=== PATIENT | female | born 1990 | race Caucasian/White ===

== ENCOUNTER 2019-07-19 08:15 | Emergency (ER) | payer SELFPAY ==
[2019-07-19 08:35] VITALS: BP 124/93; PULSE 104; RESP 16; TEMP 38.4; O2SAT 99
--- NOTE | 2019-07-19 08:56 | ED.URI ---
HPI - URI/Sore Throat General Chief Complaint: Upper Respiratory Infection Stated Complaint: Cough/Body aches/Stuffy Nose Time Seen by Provider: 07/19/19 08:55 Source: patient and RN notes reviewed Mode of arrival: ambulatory Limitations: no limitations History of Present Illness HPI Narrative: 29-year-old female who presents to [facility] care with 3-day history of fevers, chills, body aches, headache, nasal congestion with green bloody drainage.Patient had 103 Fahrenheit fever this morning,took Tylenol this morning and presents at triage with 101F.Patient states some tightness to chest with cough with coarse lung sounds noted on auscultation SaO2 99% on room air. Patient states she did not take a flu shot this year. Patient does have a history of tobacco abuse 1/2 pack daily for several years states did quit smoking for 2-year interval while and breast-feeding but initially started smoking at age 16,states has not smoked for 3 days MD elicited complaint: fever, cough, rhinorrhea and nasal congestion Pertinent past history: other (tobacco use) Onset (ago): day(s) (3) Consistency: progressively worsening Description of mucous: green Able to tolerate fluids by mouth: Yes Exacerbating factors: exertion and deep breaths Relieving factors: nothing Associated symptoms: fever, chills, myalgias, rhinorrhea, nasal congestion, sore throat and cough Treatments prior to arrival: acetaminophen Related Data Home Medications Medication Instructions Recorded Confirmed alprazolam [Xanax] 1 mg PO Q4-6H 07/19/19 07/19/19 levonorgestrel [Mirena] 1 device INTRAUTERINE ONCE 07/19/19 07/19/19 Allergies Allergy/AdvReac Type Severity Reaction Status Date / Time hydroxyzine Allergy Unknown Unknown Verified 07/19/19 08:49 lorazepam Allergy Unknown Unknown Verified 07/19/19 08:49 Review of Systems Review of Systems: Narrative: CONSTITUTIONAL: Positive fever, chills, or sweats. EYES: Denies visual changes, redness, or discharge. ENT: Positive rhinorrhea, congestion,No sore throat, or otalgia. CARDIOVASCULAR: Denies chest pain, palpitations, or edema. RESPIRATORY:positive cough with tightness to chest with cough,no acute dyspnea. GASTROINTESTINAL: Denies abdominal pain, nausea, vomiting, or diarrhea. GENITOURINARY: Denies dysuria or hematuria. SKIN: Denies rash or itching. MUSCULOSKELETAL: Denies back pain, joint pain,bodyaches NEUROLOGIC: Positive headache,no numbness, or weakness. PSYCHIATRIC:Positive anxiety no depression. All systems reviewed & are unremarkable except as noted in HPI and below PMFSH Past Medical History Medical History (Updated 07/19/19 @ 09:20 by Aide Lira NP) Anxiety Surgical History Surgical History (Updated 07/19/19 @ 08:58 by Aide Lira NP) Hx of appendectomy Family History Family History (Updated 12/26/15 @ 23:21 by DOCTOR UNKNOWN) Grandparent Malignant neoplasm of prostate Father Hypertension Sibling Patient's brother is in good health, Onset Age: 23 Social History Social History (Updated 07/19/19 @ 09:20 by Aide Lira NP) Smoking status: Current every day smoker Tobacco type: cigarettes Smoking end date: 05/30/10 Alcohol intake: current Living arrangements: with family Gender identity (if verbalized by the patient): Female Exam Narrative: Exam Narrative: GENERAL:illl-appearing, well-nourished, and in no acute distress. HEAD: Normocephalic, atraumatic. EYES: PERRLA and EOMI. ENT: Nares RedWith green rhinorrheaWith some blood-tinged no epistaxis. Mucous membranes moist.TMs normal with good light reflex throat red with no lesions or exudates, postnasal drainage noted NECK: Supple.No lymphadenopathy CHEST: Course to auscultation. No respiratory distress.Harsh cough SaO2 99% on room air HEART: Regular rate and rhythm. No murmur heard. Normal peripheral pulses. ABDOMEN: Soft, nontender, nondistended, normal active bowel sounds. EXTREMITIES: Normal range of
== END 2019-07-19 09:18 | disposition home or self-care (01) ==
PROVIDERS: Emergency Provider Registered Nurse; PCP Emergency Medicine
DX: J10.1 Influenza due to other identified influenza virus with other respiratory manifestations (principal); F17.210 Nicotine dependence, cigarettes, uncomplicated; F41.9 Anxiety disorder, unspecified
CPT/HCPCS: 87081; 87804; 87880; 99213; G0463

== ENCOUNTER 2020-02-18 17:48 | Emergency (ER) | payer OTHER, SELFPAY ==
[2020-02-18 18:00] VITALS: BP 131/80; PULSE 113; RESP 16; TEMP 36.8; O2SAT 97
--- NOTE | 2020-02-18 18:27 | ED.GENADULT ---
HPI - General Adult General Chief complaint: Skin/Abscess/Foreign Body Stated complaint: possible cyst Time Seen by Provider: 02/18/20 18:27 Source: patient and RN notes reviewed Mode of arrival: ambulatory Limitations: no limitations History of Present Illness HPI narrative: 29-year-old female presents with complaints of raised area to right-upper back with redness, tenderness, and swelling for the past 7 days. Tender to touch. Foul smelling drainage for the past 48 hours. History of cyst in same area. No fever or chills. No abdominal pain, nausea, and vomiting. LMP 9 years ago due to IUD (2nd one in place at this time). Remains active. The patient reports they have not been diagnosed with COVID-19. The patient reports she are not waiting for the results of a COVID-19 lab test. The patient reports she do not have fever, chills, weakness, fatigue, or myalgia. The patient reports she do not have a new or worsening cough or shortness of breath. Denies chest pain. The patient reports she do not have any rhinorrhea, congestion, loss of taste, sore throat, and diarrhea. Tolerating po intake well. Denies recent traveling. Denies concerns for COVID-19 or exposures been home since [id number] order except for essential household needs and return home. At this time, patient is not suspected of having COVID-19. Some parts of this dictation were generated by voice recognition software and may contain typographical and/or grammatical inaccuracies. Related Data Home Medications Medication Instructions Recorded Confirmed alprazolam [Xanax] 1 mg PO BID 02/18/20 02/18/20 levonorgestrel [Mirena] 1 device INTRAUTERINE ONCE 02/18/20 02/18/20 Allergies Allergy/AdvReac Type Severity Reaction Status Date / Time hydroxyzine Allergy Unknown Unknown Verified 02/18/20 18:14 lorazepam Allergy Unknown Unknown Verified 02/18/20 18:14 Penicillins Allergy Hives Verified 02/19/20 13:01 sulfamethoxazole Allergy Hives Verified 02/19/20 12:59 [From Bactrim] trimethoprim [From Bactrim] Allergy Hives Verified 02/19/20 12:59 Review of Systems Review of Systems: Narrative: CONSTITUTIONAL: Denies fever, chills, sweats. EYES: Denies visual changes, redness, discharge. ENT: Denies rhinorrhea, congestion, sore throat, otalgia. CARDIOVASCULAR: Denies chest pain, palpitations, edema. RESPIRATORY: Denies dyspnea, wheezing, cough. GASTROINTESTINAL: Denies abdominal pain, nausea, vomiting, diarrhea. GENITOURINARY: Denies dysuria, hematuria, abnormal discharge. SKIN: Denies rash or itching. Raised area to right-upper back with redness, tenderness, swelling, and drainage. MUSCULOSKELETAL: Denies acute back pain, joint pain, or myalgia. NEUROLOGIC: Denies numbness or focal weakness. PSYCHIATRIC: Denies anxiety or depression. All systems reviewed & are unremarkable except as noted in HPI and below. [facility] Past Medical History Medical History Anxiety (Unknown) Cyst Surgical History Surgical History Hx of appendectomy Family History Family History Grandparent Malignant neoplasm of prostate Father Hypertension Sibling Patient's brother is in good health, Onset Age: 23 Father Unknown family medical history Mother Skin cancer (melanoma) Social History Social History Smoking packs per day: 0.5 Smoking cigarettes per day: 10.0 Years smoked: 12 Smoking pack-years: 6.00 Smoking status: Current every day smoker Tobacco type: cigarettes Second hand tobacco smoke exposure: No Alcohol intake: current Substance use: current Substance use type: marijuana Living arrangements: alone Occupation/Education: occupation Gender identity (if verbalized by the patient): Female Sexual Orientation (if Ve
--- NOTE | 2020-02-19 13:02 | PC.NURSE ---
pt called and stated that she is having redness and itching to her face, and small hives. 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
== END 2020-02-18 18:53 | disposition home or self-care (01) ==
PROVIDERS: Emergency Provider Nurse Practitioner Family; PCP Emergency Medicine
DX: L72.9 Follicular cyst of the skin and subcutaneous tissue, unspecified (principal); F17.210 Nicotine dependence, cigarettes, uncomplicated
CPT/HCPCS: 87070; 87077; 87205; 99213; G0463

== ENCOUNTER 2020-09-02 16:45 | Emergency (ER) | payer OTHER, SELFPAY ==
--- NOTE | 2020-09-02 16:54 | ED.ABDPAIN ---
HPI - Abdominal Pain General Chief Complaint: Nausea/Vomiting/Diarrhea Stated Complaint: abd pain Time Seen by Provider: 09/02/20 16:56 Source: patient and RN notes reviewed Mode of arrival: ambulatory Limitations: no limitations History of Present Illness HPI narrative: 30-year-old female presents with concern for vomiting, diarrhea, body aches that started last night. She reports she began having a stomachache last night, vomited a large amount this morning, reports headache. Reports she has had several loose stools throughout the day. She denies any fever. Reports some when she works with had similar symptoms. She denies abdominal pain, rhinorrhea, nasal congestion, sore throat, cough, shortness of breath. MD elicited complaint: abdominal pain Pertinent past history: other (Vomiting, diarrhea) Related Data Home Medications Medication Instructions Recorded Confirmed alprazolam [Xanax] 1 mg PO BID 02/18/20 04/09/20 levonorgestrel [Mirena] 1 device INTRAUTERINE ONCE 02/18/20 04/09/20 Allergies Allergy/AdvReac Type Severity Reaction Status Date / Time hydroxyzine Allergy Unknown Unknown Verified 04/09/20 11:17 lorazepam Allergy Unknown Unknown Verified 04/09/20 11:17 Penicillins Allergy Hives Verified 04/09/20 11:17 sulfamethoxazole Allergy Hives Verified 04/09/20 11:17 [From Bactrim] trimethoprim [From Bactrim] Allergy Hives Verified 04/09/20 11:17 Review of Systems Review of Systems: Narrative: CONSTITUTIONAL: Denies malaise, chills, sweats, or fever. EYES: Denies visual changes, redness, or discharge. ENT: Denies rhinorrhea, congestion, sinus pain, otalgia or sore throat. CARDIOVASCULAR: Denies chest pain, palpitations, or edema. RESPIRATORY: Denies cough or dyspnea. GASTROINTESTINAL: Denies abdominal pain,bloody, or mucous stools. Reports nausea, vomiting, diarrhea GENITOURINARY: Denies dysuria or hematuria. SKIN: Denies rash or itching. MUSCULOSKELETAL: Reports myalgia. NEUROLOGIC: Reports headache. PSYCHIATRIC: Denies anxiety or depression. All systems reviewed & are unremarkable except as noted in HPI and below PMFSH Past Medical History Medical History Anxiety (Unknown) Cyst Migraine Surgical History Surgical History Epidermal cyst removed Hx of appendectomy Family History Family History Grandparent Malignant neoplasm of prostate Father Hypertension Sibling Patient's brother is in good health, Onset Age: 23 Mother Skin cancer (melanoma) Social History Social History Smoking packs per day: 0.5 Smoking cigarettes per day: 10.0 Years smoked: 12 Smoking pack-years: 6.00 Smoking status: Current every day smoker Tobacco type: cigarettes Second hand tobacco smoke exposure: No Alcohol intake: current Substance use: current Substance use type: marijuana 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 There is no relevant family history pertinent to the presenting complaint Exam Narrative: Exam Narrative: GENERAL: Well-appearing, well-nourished, and in no acute distress. HEAD: Normocephalic. EYES: PERRLA, conjunctivae clear. NECK: Supple. No lymphadenopathy CHEST: Clear to auscultation. No respiratory distress. HEART: Regular rate and rhythm. ABDOMEN: Soft, nontender upon palpation, nondistended, normal active bowel sounds, no palpable or pulsatile masses, no guarding. No CVA tenderness SKIN: Warm, dry, no rash. NEURO: Alert and oriented x3. PSYCH: Normal mood and affect Course Course Emergency Course: Patient is aware of diagnosis, understands and agrees to treatment plan. A
[2020-09-02 17:00] VITALS: BP 128/78; PULSE 101; RESP 17; O2SAT 99
== END 2020-09-02 17:36 | disposition home or self-care (01) ==
PROVIDERS: Emergency Provider Nurse Practitioner
DX: R11.2 Nausea with vomiting, unspecified (principal); R19.7 Diarrhea, unspecified; Z20.822 Contact with and (suspected) exposure to COVID-19; F17.210 Nicotine dependence, cigarettes, uncomplicated; F41.9 Anxiety disorder, unspecified
CPT/HCPCS: 87426; 99213; C9803; G0463

== ENCOUNTER 2020-10-05 17:20 | Emergency (ER) | payer OTHER, SELFPAY ==
--- NOTE | 2020-10-05 17:27 | ED.ABDPAIN ---
HPI - Abdominal Pain General Chief Complaint: Urogenital-Female Stated Complaint: lower abdominal/back pain Time Seen by Provider: 10/05/20 17:27 Source: patient and RN notes reviewed Mode of arrival: ambulatory Limitations: no limitations History of Present Illness HPI narrative: 30-year-old female presents to the [facility] with complaints of lower abdominal pressure and lower back pain with urinary urgency and frequency. Denies burning. No fevers. Has had intermittent nausea. Unsure of status due to her Mirena expiring next month. No CVA tenderness. Denies chest pain or shortness of breath. Unsure of last menstrual period due to having the Mirena. MD elicited complaint: abdominal pain and flank pain Onset (ago): day(s) (-) Pain Consistency: intermittent Severity: mild Quality: cramping and aching Related Data Home Medications Medication Instructions Recorded Confirmed alprazolam [Xanax] 1 mg PO BID 02/18/20 10/05/20 Allergies Allergy/AdvReac Type Severity Reaction Status Date / Time hydroxyzine Allergy Unknown Unknown Verified 04/09/20 11:17 lorazepam Allergy Unknown Unknown Verified 04/09/20 11:17 Penicillins Allergy Hives Verified 04/09/20 11:17 sulfamethoxazole Allergy Hives Verified 04/09/20 11:17 [From Bactrim] trimethoprim [From Bactrim] Allergy Hives Verified 04/09/20 11:17 Review of Systems Review of Systems: All systems reviewed & are unremarkable except as noted in HPI and below Constitutional: Constitutional: Reports as per HPI, Denies fatigue, Denies fever(s) and Denies weakness Eyes: Eyes: Reports no additional eye complaints Cardiovascular: Cardiovascular: Reports no additional cardiovascular complaints Respiratory: Respiratory: Reports no additional respiratory complaints Gastrointestinal: Gastrointestinal: Reports abdominal pain (Suprapubic), Reports bloating, Denies diarrhea, Reports nausea and Denies vomiting Genitourinary: Genitourinary: Reports as per HPI, Denies abnormal vaginal bleeding, Reports nocturia, Reports dysuria, Denies pelvic pain, Denies flank pain, Denies urinary incontinence and Denies vaginal discharge Musculoskeletal: Musculoskeletal: Reports as per HPI and Reports back pain (Lower) Integumentary/Breasts: Skin/Breast: Reports system reviewed and no additional complaints, except as docu Neurologic: Reports system reviewed and no additional complaints, except as documented Psychiatric: Psychiatric: Reports no additional psychiatric complaints PMFSH Past Medical History Medical History Anxiety (Unknown) Cyst Migraine Surgical History Surgical History Epidermal cyst removed Hx of appendectomy Family History Family History Grandparent Malignant neoplasm of prostate Father Hypertension Sibling Patient's brother is in good health, Onset Age: 23 Mother Skin cancer (melanoma) Social History Social History Smoking packs per day: 0.5 Smoking cigarettes per day: 10.0 Years smoked: 12 Smoking pack-years: 6.00 Smoking status: Current every day smoker Tobacco type: cigarettes Second hand tobacco smoke exposure: No Alcohol intake: current Substance use: current Substance use type: marijuana 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 There is no relevant family history pertinent to the patient complaint. Exam Const: General: healthy appearing, no acute distress and alert Nutritional Appearance: well nourished Orientation/consciousness: patient oriented x3 HENMT: Head: normal to inspection Ears: external ears normal Neck:
[2020-10-05 17:30] VITALS: BP 118/84; PULSE 93; RESP 16; TEMP 36.6; O2SAT 99
== END 2020-10-05 17:41 | disposition home or self-care (01) ==
PROVIDERS: Emergency Provider Nurse Practitioner; PCP Emergency Medicine
DX: N30.01 Acute cystitis with hematuria (principal); F17.210 Nicotine dependence, cigarettes, uncomplicated; F41.9 Anxiety disorder, unspecified
CPT/HCPCS: 81003; 87086; 87088; 87147; 99213; G0463

== ENCOUNTER 2021-01-16 09:03 | Emergency (ER) | payer OTHER, SELFPAY ==
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
[2021-01-16 09:10] VITALS: BP 148/92; PULSE 90; RESP 16; TEMP 36.6; O2SAT 98
[2021-01-16 09:51] VITALS: BP 135/75; PULSE 73; RESP 20; O2SAT 100
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
[2021-01-16] MEDS: ACETAMINOPHEN 500 MG TABLET 1000 MG PO (11:01)
[2021-01-16 11:06] VITALS: BP 109/72; PULSE 70; RESP 20; O2SAT 100
[2021-01-16] MEDS: diazePAM INJ (*CRX) 10 MG/2 ML SYRINGE 5 MG IM (11:18)
[2021-01-16 11:24] LABS: Add Urine Microscopic? YES; Appearance Urine Cloudy (Clear); Bacteria Urine Trace /hpf; Bilirubin Urine Negative (Negative); Blood Urine 1+ (Negative); Color Urine Yellow (Yellow); Glucose Urine UA Negative (Negative); Ketones Urine Negative (Negative); Leukocyte Esterase Ur Trace LEU/UL (Negative); Mucus Urine Rare /lpf; Nitrate Urine Negative (Negative); Protein Urine Negative (Negative); RBC Urine 0-2 /hpf (0-2); Specific Grav Ur 1.026 (1.001-1.035); Squamous Epithelial Cell Urine Rare /hpf (Few); Urobilinogen Urine Negative mg/dL (<2.0); WBC Urine 0-3 /hpf
[2021-01-16 13:23] VITALS: BP 110/82; PULSE 74; RESP 20; O2SAT 100
== END 2021-01-16 13:26 | disposition home or self-care (01) ==
PROVIDERS: Physician Assistant; Emergency Provider Emergency Medicine; PCP Emergency Medicine
DX: S16.1XXA Strain of muscle, fascia and tendon at neck level, initial encounter (principal); E04.1 Nontoxic single thyroid nodule; F41.9 Anxiety disorder, unspecified; F17.210 Nicotine dependence, cigarettes, uncomplicated; V43.52XA Car driver injured in collision with other type car in traffic accident, initial encounter
CPT/HCPCS: 70450; 72125; 72128; 72131; 81001; 81025; 96372; 99284; A9270; J3360; L0140

== ENCOUNTER 2021-05-21 20:45 | Emergency (ER) | payer OTHER, SELFPAY ==
--- NOTE | ~2021-05-21 | CT_ITS ---
EXAMINATION: CT brain wo con DATE: 05/21/2021 21:51 INDICATION: Syncope TECHNIQUE: Computed tomography (CT) of the head was performed without intravenous contrast. Sagittal and coronal reconstructions were performed. The mA was adjusted according to patient size. Iterative reconstruction technique was employed. The dose-length product was 605.33 mGy-cm. COMPARISON: head CT dated 01/16/2021 FINDINGS: No acute intracranial hemorrhage, acute infarction or abnormal extra axial fluid collection. Ventricl es are normal and symmetric. No mass/mass effect. Mild mucosal thickening in the anterior right ethmo id sinus. The orbits and mastoid air cells are normal. IMPRESSION: 1. Normal brain. No acute intracranial process. Reviewed, dictated and finalized at location . [facility]ER
[2021-05-21 20:44] VITALS: BP 108/62; PULSE 108; PULSE 96; RESP 22; TEMP 36.6; O2SAT 100
[2021-05-21 21:01] VITALS: BP 110/69; PULSE 87; RESP 21; O2SAT 98
[2021-05-21 21:32] VITALS: BP 103/53; PULSE 89; RESP 20; O2SAT 98
--- NOTE | 2021-05-21 21:32 | ECG_ITS ---
Measurements Intervals [place] Rate: 84 P: 18 TX: 128 QRS: 43 QRSD: 85 T: 11 QT: 334 QTc: 396 Interpretive Statements SINUS RHYTHM NORMAL ECG Electronically Signed On 05-22-2021 5:36:53 CELLOPHANER by Juan Rodriguez D.O.
--- NOTE | 2021-05-21 21:36 | ED.SYNCOPE ---
HPI - Syncope General Chief Complaint: Syncope Stated Complaint: syncopal event Time Seen by Provider: 05/21/21 21:08 Source: patient Mode of arrival: ambulatory Limitations: no limitations History of Present Illness HPI narrative: Patient is a 31-year-old female complain of a syncopal episode started in her when she suddenly stood up and felt dizzy. Patient states that the episode lasted for approximately 1 to 2 minutes. Denies any symptoms prior. Patient currently has no complaints at this time. Patient does admit to smoking marijuana tonight. Patient denies any speech or visual disturbance, focal weakness or numbness, unsteady gait, chest pain, shortness of breath, abdominal pain, nausea, vomiting, diarrhea, fever or chills. Related Data Home Medications Medication Instructions Recorded Confirmed alprazolam [Xanax] 1 mg PO BID 02/18/20 01/16/21 Allergies Allergy/AdvReac Type Severity Reaction Status Date / Time hydroxyzine Allergy Unknown Unknown Verified 05/21/21 20:54 Penicillins Allergy Hives Verified 05/21/21 20:54 sulfamethoxazole Allergy Hives Verified 05/21/21 20:54 [From Bactrim] trimethoprim [From Bactrim] Allergy Hives Verified 05/21/21 20:54 Review of Systems Review of Systems: All systems reviewed & are unremarkable except as noted in HPI and below Constitutional: Constitutional: Denies body ache(s), Denies chills, Denies excessive sweating, Denies fatigue, Denies fever(s), Denies headache(s), Denies lethargy, Denies malaise, Denies weakness and Denies weight loss Eyes: Eyes: Denies blurry vision, Denies change in vision and Denies loss of vision ENT: Denies dizziness, Denies ear discharge, Denies headache(s), Denies lip swelling, Denies epistaxis, Denies nasal congestion, Denies neck pain, Denies throat swelling and Denies tongue swelling Cardiovascular: Cardiovascular: Denies chest pain, Denies chest pain at rest, Denies chest pain with activity, Denies diaphoresis, Denies rapid heart rate, Denies edema, Denies irregular heart rhythm, Denies lightheadedness, Denies palpitations, Denies dyspnea and Denies dyspnea on exertion Respiratory: Respiratory: Denies chest congestion, Denies cough, Denies hemoptysis, Denies dyspnea and Denies dyspnea on exertion Gastrointestinal: Gastrointestinal: Denies abdominal pain, Denies melena, Denies hematochezia, Denies diarrhea, Denies nausea, Denies vomiting and Denies hematemesis Musculoskeletal: Musculoskeletal: Denies abnormal gait, Denies deformity, Denies joint swelling, Denies limited range of motion, Denies neck pain and Denies numbness Neurologic: Denies Abnormal speech present, Denies abnormal gait, Denies confusion, Denies dizziness, Denies headache(s), Denies focal weakness, Denies loss of vision, Denies numbness, Denies Other visual disturbances, Denies Sensory deficit (Neuro) and Denies weakness Psychiatric: Psychiatric: Denies confusion, Denies depression, Denies auditory hallucinations, Denies homicidal ideation and Denies suicidal ideation Endocrine: Endocrine: Denies cold intolerance, Denies excessive sweating, Denies fatigue, Denies heat intolerance and Denies palpitations Hematologic/Lymphatic: Hematologic/Lymphatic: Denies easy bleeding and Denies easy bruising Allergic/Immunologic: Allergic/Immunologic: Denies lip swelling, Denies throat swelling and Denies tongue swelling PMFSH Past Medical History Medical History Anxiety (Unknown) Cyst Migraine Surgical History Surgical History Epidermal cyst removed Hx of appendectomy Family History Family History Grandparent Malignant neoplasm of prostate Father Hypertension Sibling Patient's brother is in good health, Onset Age: 23 Mother Skin cancer (melanoma) Social History Social History (Reviewed 05/21/21 @ 21:38
--- NOTE | 2021-05-21 21:43 | PC.NURSE ---
Pt to imaging at this time.
[2021-05-21 21:49] LABS: Basophils Absolute Auto 0.1 K/mm3 (0.0-0.1); Basophils Percent Auto 0.5 % (0.2-1.2); Eosinophils Absolute Auto 0.2 K/mm3 (0-0.3); Eosinophils Percent Auto 1.6 % (0-4.4); Hematocrit 37.5 % (37.0-47.0); Hemoglobin 12.8 g/dL (12.0-15.0); Immature Granulocyte Absolute 0.07 K/mm3 (0.00-0.031); Immature Granulocyte Percent A 0.5 % (0-0.5); Lymphocytes Absolute Auto 2.45 K/mm3 (0.9-3.2); Mean Corpuscular HGB Conc 34.1 g/dl (32-36); Mean Corpuscular Hemoglobin 31.1 pg (26-34); Mean Platelet Volume 10.1 fl (7.4-10.4); Monocytes Absolute Auto 0.8 K/mm3 (0.1-0.6); Monocytes Percent Auto 5.3 % (2.6-8.5); Neutrophils Absolute Auto 11.6 K/mm3 (1.3-6.7); Neutrophils Percent Auto 76.1 % (45.5-73.1); Platelet Count Result 291 k/mm3 (150-375); Red Blood Count 4.12 M/mm3 (4.2-5.4); Red Cell Distribution Width 12.5 % (11.5-14.5); White Blood Count 15.3 K/mm3 (4.5-10.0)
[2021-05-21 22:00] VITALS: BP 100/67; PULSE 94; RESP 21; O2SAT 98
[2021-05-21 22:00] LABS: Alanine Aminotransferase 27 U/L (4-35); Albumin Level 4.5 g/dL (3.5-5.1); Alkaline Phosphatase 45 U/L (38-126); Anion Gap 9 mmol/L (8-16); Aspartate Amino Transferase 34 U/L (14-36); Bilirubin,Total 0.4 mg/dL (0.2-1.3); Blood Urea Nitrogen 13 mg/dL (7-17); Calcium 9.6 mg/dL (8.4-10.2); Carbon Dioxide 25 mmol/L (22-30); Chloride 100 mmol/L (98-107); Estimated CRCL calculation 98 ml/min; Estimated Glomerular Filt Rate > 60; Glucose 107 mg/dL (65-110); Potassium 3.2 mmol/L (3.4-5.0); Sodium 134 mmol/L (137-145)
[2021-05-21] MEDS: SODIUM CHLORIDE 0.9% IV 1,000 ML 999 ML IV CONT (22:08)
[2021-05-21 22:11] LABS: Troponin I < 0.012 ng/mL (0.000-0.034)
[2021-05-21 22:30] VITALS: BP 107/71; PULSE 76; RESP 20; O2SAT 99
[2021-05-21 23:03] VITALS: BP 104/65; PULSE 80; RESP 17; O2SAT 98
[2021-05-21] MEDS: POTASSIUM CHLORIDE 20 MEQ PACKET (FOR LIQUID) 40 MEQ PO (23:06)
--- NOTE | 2021-05-21 23:49 | PC.NURSE ---
[place] tablet administered at 2303. First tablet dropped on floor, properly wasted and witnessed with NERY Mendez. New tablet removed from pyxis and administered. Unable to rescan in JUL.
--- NOTE | 2021-05-22 00:03 | PC.NURSE ---
Pain reassessed. Pain 610 at this time.
[2021-05-22 00:07] VITALS: BP 101/68; PULSE 80; RESP 17; O2SAT 97
== END 2021-05-22 00:08 | disposition home or self-care (01) ==
PROVIDERS: Emergency Provider Emergency Medicine; PCP Emergency Medicine
DX: R55 Syncope and collapse (principal); F41.9 Anxiety disorder, unspecified; F17.210 Nicotine dependence, cigarettes, uncomplicated
CPT/HCPCS: 36415; 70450; 80053; 81025; 84484; 85025; 93005; 96360; 99284; A9270; J7030

== ENCOUNTER 2021-05-29 08:03 | Emergency (ER) | payer OTHER, SELFPAY ==
--- NOTE | 2021-05-29 08:09 | ED.URI ---
HPI - URI/Sore Throat General Chief Complaint: Upper Respiratory Infection Stated Complaint: Sore Throat,Ear Pain Time Seen by Provider: 05/29/21 08:09 Source: patient, RN notes reviewed and old records reviewed Mode of arrival: ambulatory Limitations: no limitations History of Present Illness HPI Narrative: 31-year-old female presents to the [facility] with complaints of bilateral ear pain, sore throat, body aches, headache and nasal congestion since . Patient was seen and discharged from the ER with a diagnosis of Syncope on 21 May. Patient denies any chest pain or abdominal pain. No nausea vomiting or diarrhea. Requesting a work note MD elicited complaint: sore throat and rhinorrhea Related Data Home Medications Medication Instructions Recorded Confirmed alprazolam [Xanax] 1 mg PO BID 02/18/20 05/29/21 Allergies Allergy/AdvReac Type Severity Reaction Status Date / Time hydroxyzine Allergy Unknown Unknown Verified 05/29/21 08:22 Penicillins Allergy Hives Verified 05/29/21 08:22 sulfamethoxazole Allergy Hives Verified 05/29/21 08:22 [From Bactrim] trimethoprim [From Bactrim] Allergy Hives Verified 05/29/21 08:22 Review of Systems Review of Systems: All systems reviewed & are unremarkable except as noted in HPI and below Constitutional: Constitutional: Reports no additional constitutional complaints Eyes: Eyes: Reports no additional eye complaints ENT: Reports as per HPI, Reports nasal congestion and Reports sore throat Cardiovascular: Cardiovascular: Reports no additional cardiovascular complaints and Reports chest pain Respiratory: Respiratory: Reports as per HPI, Denies chest congestion, Denies cough and Denies dyspnea Gastrointestinal: Gastrointestinal: Reports no additional gastrointestinal complaints, Denies abdominal pain, Denies diarrhea, Denies nausea and Denies vomiting Genitourinary: Genitourinary: Reports no additional female genitourinary complaints Musculoskeletal: Musculoskeletal: Reports as per HPI and Reports myalgias Integumentary/Breasts: Skin/Breast: Reports system reviewed and no additional complaints, except as docu, Denies erythema and Denies rash Neurologic: Reports as per HPI and Reports headache(s) Psychiatric: Psychiatric: Reports no additional psychiatric complaints Allergic/Immunologic: Allergic/Immunologic: Reports no additional allergic/immunologic complaints PMFSH Past Medical History Medical History Anxiety (Unknown) Cyst Migraine Surgical History Surgical History Epidermal cyst removed Hx of appendectomy Family History Family History Grandparent Malignant neoplasm of prostate Father Hypertension Sibling Patient's brother is in good health, Onset Age: 23 Mother Skin cancer (melanoma) Social History Social History Smoking packs per day: 0.5 Smoking cigarettes per day: 10.0 Years smoked: 12 Smoking pack-years: 6.00 Smoking status: Current every day smoker Tobacco type: cigarettes Second hand tobacco smoke exposure: No Alcohol intake: current Substance use: current Substance use type: marijuana 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 There is no relevant family history pertinent to the patient complaint. Exam Const: General: healthy appearing, no acute distress and alert Nutritional Appearance: well nourished Orientation/consciousness: patient oriented x3 Limitations: no limitations HENMT: Head: normal to inspection Ears: external ears
[2021-05-29 08:14] VITALS: BP 124/63; PULSE 87; RESP 16; TEMP 36.8; O2SAT 100
[2021-05-29 08:20] VITALS: BP 124/63; PULSE 87; RESP 16; TEMP 36.8; O2SAT 100
== END 2021-05-29 08:30 | disposition home or self-care (01) ==
PROVIDERS: Emergency Provider Nurse Practitioner; PCP Emergency Medicine
DX: H65.00 Acute serous otitis media, unspecified ear (principal); J06.9 Acute upper respiratory infection, unspecified; F17.210 Nicotine dependence, cigarettes, uncomplicated
CPT/HCPCS: 99211; G0463

== ENCOUNTER → 2021-06-20 08:53 | Outpatient (CLI) | payer OTHER, SELFPAY ==
[2021-06-20 20:22] LABS: SARS-CoV-2 RNA PCR Positive
== END ==
PROVIDERS: PCP Emergency Medicine; Visit Provider Emergency Medicine
DX: U07.1 COVID-19 (principal)
CPT/HCPCS: C9803; U0003; U0005

== ENCOUNTER 2021-10-13 21:09 | Emergency (ER) | payer OTHER, SELFPAY ==
--- NOTE | ~2021-10-13 | XR_ITS ---
EXAMINATION: XR chest 2V DATE: 10/14/2021 02:22 INDICATION: Cough and shortness of breath TECHNIQUE: PA and lateral views of the chest are obtained. COMPARISON: 02/23/2019 FINDINGS: The lungs are free of acute opacities. There is no pleural effusion or pneumothorax. The ca rdiomediastinal silhouette is normal. The visualized bones and soft tissues are unremarkable. IMPRESSION: 1. No acute cardiopulmonary abnormality. Reviewed, dictated and finalized at location A.
[2021-10-13 21:18] VITALS: BP 123/87; PULSE 106; RESP 18; TEMP 36.2; O2SAT 99
[2021-10-14 01:14] VITALS: O2SAT 93
[2021-10-14 01:15] VITALS: BP 109/85; PULSE 83; RESP 16; O2SAT 96
[2021-10-14 01:16] VITALS: O2SAT 98
--- NOTE | 2021-10-14 01:23 | ECG_ITS ---
Measurements Intervals [place] Rate: 72 P: 25 [place]: 136 QRS: 45 QRSD: 89 T: 38 QT: 369 QTc: 406 Interpretive Statements SINUS RHYTHM NORMAL ECG Electronically Signed On 10-14-2021 6:37:00 CDT by Juan Rodriguez D.O.
--- NOTE | 2021-10-14 02:07 | ED.URI ---
HPI - URI/Sore Throat General Chief Complaint: Upper Respiratory Infection Stated Complaint: cough congestion SOB Time Seen by Provider: 10/14/21 01:14 Source: patient and RN notes reviewed Mode of arrival: ambulatory Limitations: no limitations History of Present Illness HPI Narrative: This is a 31 year old female who presents for evaluation of cough. Patient reports she has been dealing with a cough for 3 weeks . She was evaluated at [facility] and she was diagnosed with bronchitis. She was placed on antibiotics, albuterol inhaler and prednisone. She states she still continues to have cough that is worse at night. She reports mid chest pain with coughing only. She states other than coughing she feels fine and she was able to go to work. She denies nausea, vomiting, fever, chills. She has sob with coughing . She denies history DVT/PE. She denies leg swelling. Related Data Home Medications Medication Instructions Recorded Confirmed alprazolam [Xanax] 1 mg PO BID 02/18/20 05/29/21 Allergies Allergy/AdvReac Type Severity Reaction Status Date / Time hydroxyzine Allergy Unknown Unknown Verified 05/29/21 08:22 Penicillins Allergy Hives Verified 05/29/21 08:22 sulfamethoxazole Allergy Hives Verified 05/29/21 08:22 [From Bactrim] trimethoprim [From Bactrim] Allergy Hives Verified 05/29/21 08:22 Review of Systems Review of Systems: All systems reviewed & are unremarkable except as noted in HPI and below Constitutional: Constitutional: Denies chills and Denies fever(s) Cardiovascular: Cardiovascular: Denies chest pain Respiratory: Respiratory: Reports cough, Reports dyspnea and Denies wheezing Gastrointestinal: Gastrointestinal: Denies abdominal pain, Denies nausea and Denies vomiting PMFSH Past Medical History Medical History Anxiety (Unknown) Cyst Migraine Surgical History Surgical History Epidermal cyst removed Hx of appendectomy Family History Family History Grandparent Malignant neoplasm of prostate Father Hypertension Sibling Patient's brother is in good health, Onset Age: 23 Mother Skin cancer (melanoma) Social History Social History Smoking packs per day: 0.5 Smoking cigarettes per day: 10.0 Years smoked: 12 Smoking pack-years: 6.00 Smoking status: Current every day smoker Tobacco type: cigarettes Second hand tobacco smoke exposure: No Alcohol intake: current Substance use: current Substance use type: marijuana 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 Gender identity (if verbalized by the patient): Female Sexual Orientation (if Verbalized by the Patient): Straight or Heterosexual Exam Const: General: no acute distress and alert Orientation/consciousness: patient oriented x3 Eyes: EOM: EOMs intact bilaterally Chest: Chest palpation & inspection: normal inspection of the chest Resp: Effort & Inspection: normal respiratory effort and no retractions Auscultation: clear to auscultation bilaterally Cardio: Rate: regular rate Rhythm: regular rhythm Heart sounds: no murmurs GI: GI Palp: Yes Soft to palpation, No Tenderness to palpation present (GI), No Guarding due to palpation present (GI) and No Rigid due to palpation Auscultation: normal bowel sounds Neuro: General: patient oriented x3, moves all extremities and CN's II-XI intact bilaterally Extrem: General: normal to inspection Psych: Mental Status: mental status grossly normal Affect: normal affect Course Consultations Consultation #1: PAtient has normal vital signs. no consolidation on xray. PAtient will be sent on with cough medication. Date: 10/14/21 Time: 02:50 Vital Signs Vital signs: Vital Signs Temperature 97.2 F L 10/13/21 21:18 Pulse Rate
[2021-10-14 03:13] VITALS: BP 96/61; PULSE 76; RESP 18; O2SAT 100
== END 2021-10-14 03:12 | disposition home or self-care (01) ==
PROVIDERS: Emergency Provider General Practice; PCP Emergency Medicine
DX: J06.9 Acute upper respiratory infection, unspecified (principal); F41.9 Anxiety disorder, unspecified; F17.210 Nicotine dependence, cigarettes, uncomplicated
CPT/HCPCS: 71046; 93005; 99283

== ENCOUNTER 2021-12-11 16:30 | Outpatient (CLI) | payer MEDICAID, SELFPAY ==
--- NOTE | ~2021-12-11 | US_ITS ---
US thyroid INDICATION: Thyroid nodules TECHNIQUE: Real-time sonographic images of the thyroid gland were obtained. COMPARISON: No prior studies for comparison. FINDINGS: The right thyroid lobe measures 3.8 x 1.6 x 1.7 cm. The left thyroid lobe measures 3.1 x 1 .7 x 1.6 cm. There is normal echotexture and echogenicity throughout the thyroid gland. There is a so lid hypoechoic right thyroid mass which is wider than tall measuring 1.2 x 1.1 x 1.1 cm. There are il l-defined margins with no echogenic foci (TR 4) which does not meet sonographic criteria for biopsy. Follow-up ultrasound in 12 months recommended. Normal vascular flow is present. IMPRESSION: 1. Solid 12 mm right thyroid mass which does not meet sonographic criteria for biopsy. Ultrasound fo llow-up in 12 months recommended. Reviewed, dictated and finalized at location A. IMPRESSION: 1. Solid 12 mm right thyroid mass which does not meet sonographic criteria for biopsy. Ultrasound follow-up in 12 months recommended.
== END 2021-12-11 16:31 | disposition home or self-care (01) ==
PROVIDERS: PCP Emergency Medicine; Visit Provider Emergency Medicine
DX: E04.1 Nontoxic single thyroid nodule (principal)
CPT/HCPCS: 76536

== ENCOUNTER 2022-01-22 10:52 | Emergency (ER) | payer MEDICAID, SELFPAY ==
[2022-01-22 11:01] VITALS: BP 118/85; PULSE 105; RESP 16; TEMP 37; O2SAT 99
--- NOTE | 2022-01-22 11:23 | ED.URI ---
HPI - URI/Sore Throat General Chief Complaint: Upper Respiratory Infection Stated Complaint: URI Time Seen by Provider: 01/22/22 11:23 History of Present Illness HPI Narrative: Janae dewitt is a 31 yo female with PMH anxiety who [facility] with fever aching generally not feeling well sore throat earache, had fever last night Related Data Home Medications Medication Instructions Recorded Confirmed alprazolam 1 mg tablet (Xanax) 1 mg PO BID 02/18/20 01/22/22 Allergies Allergy/AdvReac Type Severity Reaction Status Date / Time hydroxyzine Allergy Unknown Unknown Verified 01/22/22 11:09 Penicillins Allergy Hives Verified 01/22/22 11:09 sulfamethoxazole Allergy Hives Verified 01/22/22 11:09 [From Bactrim] trimethoprim [From Bactrim] Allergy Hives Verified 01/22/22 11:09 Review of Systems Review of Systems: CONSTITUTIONAL: has had fever, chills, sweats. Body aches EYES: Denies visual changes, redness, discharge. ENT: Denies rhinorrhea, congestion, has sore throat, bilateral otalgia. CARDIOVASCULAR: Denies chest pain, palpitations, edema. RESPIRATORY: Denies dyspnea, wheezing, cough GASTROINTESTINAL: Denies abdominal pain, nausea, vomiting, diarrhea. GENITOURINARY: Denies dysuria, hematuria, abnormal discharge SKIN: Denies rash or itching. NEUROLOGIC: Denies numbness, or focal weakness. PSYCHIATRIC: Denies anxiety or depression. ON LICENSE OF [facility] Past Medical History Medical History Anxiety (Unknown) Cyst Migraine Surgical History Surgical History Epidermal cyst removed Hx of appendectomy Family History Family History Grandparent Malignant neoplasm of prostate Father Hypertension Sibling Patient's brother is in good health, Onset Age: 23 Mother Skin cancer (melanoma) Social History Social History Smoking packs per day: 0.5 Smoking cigarettes per day: 10.0 Years smoked: 12 Smoking pack-years: 6.00 Smoking status: Current every day smoker Tobacco type: cigarettes Second hand tobacco smoke exposure: No Alcohol intake: current Substance use: current Substance use type: marijuana 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 There is no relevant family history pertinent to the presenting complaint. Exam Narrative: GENERAL: This is a well-nourished, well-developed patient, in mild distress. HEAD: normocephalic, atraumatic. EYES: Sclera clear/white. Vision is grossly intact. EARS: External ears normal, auditory canals mild erythema and without drainage, TMs normal without perforation. Hearing grossly intact. NOSE: External nose normal with nasal discharge, nares without redness, no rhinorrhea. THROAT: Mucous membranes moist, posterior pharynx erythema NECK: Neck supple, non-tender CARDIOVASCULAR: tachycardic rate and rhythm without murmurs, gallops, or rubs. RESPIRATORY: Clear to auscultation. Breath sounds equal bilaterally. No wheezes, rales, or rhonchi. GASTROINTESTINAL: Abdomen soft, SKIN: warm, intact with no suspicious lesions or rash, good texture and turgor. NEURO: awake, alert, and oriented to person, place and time. There were no obvious focal neurologic abnormalities. Steady gait EXTREMITIES: Normal range of motion. BACK: Nontender without deformity Course Course Emergency Course: Patient is feeling ill, fever last night, sore throat and earache-has had COVID twice in the past Swab for COVIDneg Swab for flu- positive Swab strep- sent for cx Discussed tx viruses with treating with prednisone Tyl
== END 2022-01-22 12:13 | disposition home or self-care (01) ==
PROVIDERS: Emergency Provider Nurse Practitioner; PCP Emergency Medicine
DX: J10.1 Influenza due to other identified influenza virus with other respiratory manifestations (principal); Z20.822 Contact with and (suspected) exposure to COVID-19; F17.219 Nicotine dependence, cigarettes, with unspecified nicotine-induced disorders; F41.9 Anxiety disorder, unspecified
CPT/HCPCS: 87081; 87426; 87804; 99213; C9803; G0463

== ENCOUNTER 2022-03-22 11:46 | Emergency (ER) | payer OTHER, SELFPAY ==
[2022-03-22 11:55] VITALS: BP 132/83; PULSE 87; RESP 16; TEMP 36.4; O2SAT 100
--- NOTE | 2022-03-22 12:28 | ED.URI ---
HPI - URI/Sore Throat General Chief Complaint: Upper Respiratory Infection Stated Complaint: Sore Throat Time Seen by Provider: 03/22/22 12:28 Source: patient and RN notes reviewed Mode of arrival: ambulatory Limitations: no limitations History of Present Illness HPI Narrative: 31-year-old female presents with concern for 2 day history of sore throat, green nasal drainage nasal congestion. She reports painful swallowing. She reports recently having flu. She reports she is concerned for strep. MD elicited complaint: sore throat Related Data Home Medications Medication Instructions Recorded Confirmed alprazolam 1 mg tablet (Xanax) 1 mg PO BID 02/18/20 03/22/22 Allergies Allergy/AdvReac Type Severity Reaction Status Date / Time hydroxyzine Allergy Unknown Unknown Verified 03/22/22 11:50 Penicillins Allergy Hives Verified 03/22/22 11:50 sulfamethoxazole Allergy Hives Verified 03/22/22 11:50 [From Bactrim] trimethoprim [From Bactrim] Allergy Hives Verified 03/22/22 11:50 Review of Systems Review of Systems: CONSTITUTIONAL: Denies malaise, chills, sweats, or fever. EYES: Denies visual changes, redness, or discharge. ENT: Reports rhinorrhea, congestion, sore throat, ear fullness. Denies sinus pain, otalgia CARDIOVASCULAR: Denies chest pain, palpitations, or edema. RESPIRATORY: Denies cough. Denies dyspnea. GASTROINTESTINAL: Denies abdominal pain, nausea, vomiting, diarrhea SKIN: Denies rash or itching. MUSCULOSKELETAL: Denies myalgia. NEUROLOGIC: Denies headache. All systems reviewed & are unremarkable except as noted in HPI and below PMFSH Past Medical History Medical History Anxiety (Unknown) Cyst Migraine Surgical History Surgical History Epidermal cyst removed Hx of appendectomy Family History Family History Grandparent Malignant neoplasm of prostate Father Hypertension Sibling Patient's brother is in good health, Onset Age: 23 Mother Skin cancer (melanoma) Social History Social History Smoking packs per day: 0.5 Smoking cigarettes per day: 10.0 Years smoked: 12 Smoking pack-years: 6.00 Smoking status: Current every day smoker Tobacco type: cigarettes Second hand tobacco smoke exposure: No Alcohol intake: current Substance use: current Substance use type: marijuana 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 There is no relevant family history pertinent to the presenting complaint Exam Narrative: GENERAL: Well-appearing, well-nourished, and in no acute distress. HEAD: Normocephalic EYES: PERRLA, conjunctivae clear ENT: Nares clear, clear discharge. Mucous membranes moist. TM pearly mayer with dull light reflex bilaterally; no tragal tenderness. Oropharynx erythematous without lesions. Tonsils not enlarged and without exudate, no drooling, no hoarseness, no trismus, uvula midline. NECK: Supple. No lymphadenopathy CHEST: Clear to auscultation, breath sounds equal. No wheezing, rhonchi, rales, or stridor. No respiratory distress, speaks in full sentences. HEART: Regular rate and rhythm. No murmur heard. SKIN: Warm, dry, no rash. NEURO: Alert and oriented x3. PSYCH: Normal mood and affect Course Course Emergency Course: Patient is aware of diagnosis, understands and agrees to treatment plan. Anticipatory guidance given. Patient agrees to follow-up as directed and is aware of reasons to seek care at the emergency department. Portions of this record may have been created with voice recognition software
== END 2022-03-22 12:38 | disposition home or self-care (01) ==
PROVIDERS: Emergency Provider Nurse Practitioner; PCP Emergency Medicine
DX: J06.9 Acute upper respiratory infection, unspecified (principal); F17.210 Nicotine dependence, cigarettes, uncomplicated; F41.9 Anxiety disorder, unspecified
CPT/HCPCS: 87081; 87880; 99213; G0463

== ENCOUNTER 2022-11-12 16:58 | Emergency (ER) | payer OTHER, SELFPAY ==
[2022-11-12 17:08] VITALS: BP 118/77; PULSE 70; RESP 16; TEMP 37.2; O2SAT 99
--- NOTE | 2022-11-12 17:54 | ED.URI ---
HPI - URI/Sore Throat General Chief Complaint: Upper Respiratory Infection Stated Complaint: Cough Time Seen by Provider: 11/12/22 17:22 Source: patient and RN notes reviewed Mode of arrival: ambulatory Limitations: no limitations History of Present Illness HPI Narrative: Patient presents today complaining of a 2 week history of cough that is nonproductive and worse at night, nasal congestion, fatigue. Denies shortness of breath. She has tried Zyrtec, Benadryl, Claritin, and Excedrin. No history of asthma. Smokes 0.5-1 pack per day. Patient is requesting a COVID-19 PCR as she leaves for 3 days on a vacation to [facility]. Related Data Home Medications Medication Instructions Recorded Confirmed alprazolam 1 mg tablet (Xanax) 1 mg PO BID 02/18/20 11/12/22 Allergies Allergy/AdvReac Type Severity Reaction Status Date / Time Penicillins Allergy Intermediate Hives Verified 11/12/22 17:07 sulfamethoxazole Allergy Intermediate Hives Verified 11/12/22 17:07 [From Bactrim] trimethoprim [From Bactrim] Allergy Intermediate Hives Verified 11/12/22 17:07 hydroxyzine Allergy Unknown Unknown Verified 11/12/22 17:07 Review of Systems Review of Systems: CONSTITUTIONAL: Denies body aches, fever, chills, or sweats.+ fatigue EYES: Denies visual changes, redness, or discharge. ENT: Denies rhinorrhea, sore throat, or otalgia.+ congestion CARDIOVASCULAR: Denies chest pain, palpitations, or edema. RESPIRATORY: Denies dyspnea.+ cough GASTROINTESTINAL: Denies abdominal pain, nausea, vomiting, or diarrhea. GENITOURINARY: Denies dysuria or hematuria. SKIN: Denies rash, itching, or wounds. MUSCULOSKELETAL: Denies back pain, joint pain, or myalgia. NEUROLOGIC: Denies headache, numbness, tingling, or weakness. PSYCH: Denies depression or anxiety. [facility] Past Medical History Medical History Anxiety (Unknown) Cyst Migraine Surgical History Surgical History Epidermal cyst removed Hx of appendectomy Family History Family History Grandparent Malignant neoplasm of prostate Father Hypertension Sibling Patient's brother is in good health, Onset Age: 23 Mother Skin cancer (melanoma) Social History Social History Smoking packs per day: 0.5 Smoking cigarettes per day: 10.0 Years smoked: 12 Smoking pack-years: 6.00 Smoking status: Current every day smoker Tobacco type: cigarettes Second hand tobacco smoke exposure: No Alcohol intake: current Substance use: current Substance use type: marijuana Living arrangements: alone Occupation/Education: occupation 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 Please see nursing chart for further information. There is no relevant family history pertinent to the presenting complaint Exam Narrative: GENERAL: Well-appearing, well-nourished, and in no acute distress. HEAD: Normocephalic, atraumatic. EYES: EOMI. No redness or drainage. Conjunctivae normal. ENT: Mucous membranes pink and moist. Nares congested. No rhinorrhea. TMs normal bilaterally. Throat normal. Uvula midline. NECK: Normal AROM. Supple. No lymphadenopathy. CHEST: No respiratory distress. Clear to auscultation. HEART: Regular rate and rhythm. No murmur appreciated. Normal peripheral pulses. EXTREMITIES: Normal range of motion. No edema. SKIN: Warm, dry, no rash. Capillary refill normal. Normal skin turgor. NEURO: No focal deficits. Alert and oriented x3. Gait steady. P
[2022-11-12 19:50] LABS: SARS-CoV-2 RNA PCR Negative (Negative)
== END 2022-11-12 18:07 | disposition home or self-care (01) ==
PROVIDERS: Emergency Provider Nurse Practitioner; PCP Emergency Medicine
DX: J40 Bronchitis, not specified as acute or chronic (principal); Z20.822 Contact with and (suspected) exposure to COVID-19; F17.210 Nicotine dependence, cigarettes, uncomplicated; F41.9 Anxiety disorder, unspecified
CPT/HCPCS: 87635; 99213; G0463

== ENCOUNTER 2023-03-25 16:31 | Outpatient (CLI) | payer OTHER, SELFPAY ==
--- NOTE | ~2023-03-25 | US_ITS ---
EXAMINATION: US thyroid DATE: 03/25/2023 17:50 INDICATION: Thyroid nodule. TECHNIQUE: Multiple ultrasound images of the thyroid were obtained. COMPARISON: Thyroid ultrasound 12/11/2021 FINDINGS: The right thyroid lobe measures 3.6 x 1.5 x 1.6 cm. The left thyroid lobe measures 2.8 x 1.4 x 0.6 c m. In the right thyroid lobe, there is a 1.2 cm solid, isoechoic, wider than tall nodule with ill-de fined margin without echogenic foci (TI-RADS TR3). IMPRESSION: 1. Stable right thyroid nodule, likely not clinically significant. No follow-up is needed. Reviewed, dictated and finalized at location E.
== END 2023-03-25 16:32 | disposition home or self-care (01) ==
PROVIDERS: PCP Emergency Medicine; Visit Provider Emergency Medicine
DX: E04.1 Nontoxic single thyroid nodule (principal)
CPT/HCPCS: 76536

== ENCOUNTER 2023-09-02 08:52 | Emergency (ER) | payer OTHER, SELFPAY ==
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
--- NOTE | ~2023-09-02 | XR_ITS ---
EXAMINATION: [id number]_[id number] DATE: 09/02/2023 09:52 INDICATION: Neck pain. Injury. TECHNIQUE: 4 views of cervical spine were obtained. COMPARISON: None. FINDINGS: Bone alignment is normal. Vertebral body heights and intervertebral disc heights are normal . There is mild facet joint osteoarthritis at C2-C3 and C7-T1. No central canal stenosis or preverteb ral soft tissue swelling. IMPRESSION: 1. Mild cervical facet joint osteoarthritis. Reviewed, dictated and finalized at location A.
[2023-09-02 09:15] VITALS: BP 126/84; PULSE 88; RESP 18; TEMP 36.3; O2SAT 99
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
[2023-09-02] MEDS: ACETAMINOPHEN 500 MG TABLET 1000 MG PO (12:43)
[2023-09-02] MEDS: methocarbamoL 750 MG TABLET 1500 MG PO (12:43)
[2023-09-02] MEDS: IBUPROFEN 400 MG TABLET 800 MG PO (12:43)
[2023-09-02 12:59] VITALS: BP 119/86; PULSE 80; RESP 20; O2SAT 100
== END 2023-09-02 13:03 | disposition home or self-care (01) ==
PROVIDERS: Emergency Provider Emergency Medicine; PCP Emergency Medicine
DX: R07.81 Pleurodynia (principal); V86.56XA Driver of dirt bike or motor/cross bike injured in nontraffic accident, initial encounter; F41.9 Anxiety disorder, unspecified; F17.210 Nicotine dependence, cigarettes, uncomplicated
CPT/HCPCS: 71100; 72040; 99284; A9270